=== PATIENT | male | born 1965 | race Caucasian/White ===

== ENCOUNTER 2024-07-01 00:43 | Emergency (ER) | payer MEDICAID, OTHER ==
[~2024-07-01] VITALS: Ht 193 cm; Wt 172.4 kg
[~2024-07-01 00:43] MED LIST: NO MEDS
[2024-07-01 03:10] VITALS: BP 137/90; TEMP 98.4; O2SAT 100
[2024-07-01] MEDS ORDERED: CEPH500C2 PO (03:22)
[2024-07-01] MEDS ORDERED: SULF1TAB48 PO (03:22)
[2024-07-01] MEDS ORDERED: CEPHALEXIN MONOHYDRATE 500 MG CAPSULE PO ONE (03:28)
[2024-07-01] MEDS ORDERED: SULFAMETH/TRIMETH 800/160 MG 1 UDTAB TABLET ONE (03:28)
[2024-07-01] MEDS: CEPHALEXIN MONOHYDRATE 500 MG CAPSULE PO ONE (03:30)
[2024-07-01] MEDS: SULFAMETH/TRIMETH 800/160 MG 1 UDTAB TABLET PO ONE (03:30)
== END 2024-07-01 03:33 | disposition home or self-care (01) ==
LOC: ER 00:54
DX: L03.114 Cellulitis of left upper limb (principal); M79.642 Pain in left hand; I25.2 Old myocardial infarction; Z95.5 Presence of coronary angioplasty implant and graft